=== PATIENT | male | born 1995 | race Caucasian/White ===

== ENCOUNTER 2016-09-13 19:14 | Emergency (ER) | payer SELFPAY ==
[2016-09-13] MEDS ORDERED: ONDANSETRON HCL INJ/PF 4 MG/2 ML SDV IV ONE ×2 (20:23→21:57)
[2016-09-13] MEDS ORDERED: NORMAL SALINE 1000 ML 1,000 ML IV ONE ×2 (20:23→21:57)
--- NOTE | 2016-09-13 20:28 | ER Document Report ---
ED Medical Screen (RME) - General Chief Complaint: Nausea/Vomiting Stated Complaint: FEVER,VOMITING,DIZZY Time Seen by Provider: 09/13/16 20:25 Mode of Arrival: Ambulatory Information source: Patient Notes: 20 yo male intermittent fever, nausea, vomiting, diarrhea, dry heaving, sharp tickle/cough with inhalation for 10 days. Tooth extracted top left, 2nd molar 14 days ago was on amoxicillin. Generalized bodyaches. No tick bite, no travel outside [place]. TRAVEL OUTSIDE OF THE [place] IN LAST 30 DAYS: No - Related Data Allergies/Adverse Reactions: No Known Allergies Allergy (Unverified 09/13/16 19:50) Past Medical History Renal/ Medical History: Denies: Hx Peritoneal Dialysis Physical Exam - Vital signs Vitals: Temp Pulse Resp BP Pulse Ox 99.8 F 113 H 18 117/66 97 09/13/16 19:50 09/13/16 19:50 09/13/16 19:50 09/13/16 19:50 09/13/16 19:50 Course - Vital Signs Vital signs: Temp Pulse Resp BP Pulse Ox 99.8 F 113 H 18 117/66 97 09/13/16 19:50 09/13/16 19:50 09/13/16 19:50 09/13/16 19:50 09/13/16 19:50
--- NOTE | 2016-09-13 21:01 | RADIOLOGY REPORT (SQ) ---
EXAM DESCRIPTION: CHEST PA/LAT COMPLETED DATE/TIME: 09/13/2016 8:49 pm REASON FOR STUDY: cough, fever COMPARISON: None. EXAM PARAMETERS: NUMBER OF VIEWS: two views TECHNIQUE: Digital Frontal and Lateral radiographic views of the chest acquired. RADIATION DOSE: NA LIMITATIONS: none FINDINGS: LUNGS AND PLEURA: There is patchy airspace density in the left lower lobe consistent with a patchy pneumonic infiltrate. The remaining lung nolasco are clear. No pleural effusions are identi fied. MEDIASTINUM AND HILAR STRUCTURES: No masses or contour abnormalities. HEART AND VASCULAR STRUCTURES: Heart normal size. No evidence for failure. BONES: No acute findings. HARDWARE: None in the chest. OTHER: No other significant finding. IMPRESSION: Patchy pneumonic infiltrate in the left lower lobe. TECHNICAL DOCUMENTATION: JOB ID: [id number] [employer]- All Rights Reserved
[2016-09-13 21:06] LABS: ABSOLUTE BASOPHILS # (AUTO) 0.1 10^3/uL (0.0-0.2); ABSOLUTE EOSINOPHILS # (AUTO) 0.1 10^3/uL (0.0-0.6); ABSOLUTE LYMPHOCYTES (AUTO) 1.2 10^3/uL (0.5-4.7); ABSOLUTE MONOCYTES (AUTO) 1.5 10^3/uL (0.1-1.4); BASOPHILS % (AUTO) 0.8 % (0-2); EOSINOPHILS % (AUTO) 0.8 % (0-6); HEMATOCRIT 43.5 % (37.9-51.0); HEMOGLOBIN 14.6 g/dL (13.5-17.0); HGB HCT DIFFERENCE 0.3; LYMPHOCYTES % (AUTO) 9.6 % (13-45); MEAN CORPUSCULAR HEMOGLOBIN 28.9 pg (27.0-33.4); MEAN CORPUSCULAR HGB CONC 33.5 g/dL (32.0-36.0); MEAN CORPUSCULAR VOLUME 86 fl (80-97); MONOCYTES % (AUTO) 11.5 % (3-13); RED BLOOD COUNT 5.05 10^6/uL (4.35-5.55); SEGMENTED NEUTROPHILS % (AUTO) 77.3 % (42-78); WHITE BLOOD COUNT 12.9 10^3/uL (4.0-10.5)
[2016-09-13 21:16] LABS: ALANINE AMINOTRANSFERASE 102 U/L (21-72); ALKALINE PHOSPHATASE 92 U/L (38-126); ANION GAP 14 (5-19); ASPARTATE AMINO TRANSFERASE 60 U/L (17-59); BILIRUBIN,DIRECT 0.5 mg/dL (0.0-0.4); BLOOD UREA NITROGEN 12 mg/dL (7-20); CARBON DIOXIDE 27 mmol/L (22-30); CHLORIDE 97 mmol/L (98-107); GLUCOSE 95 mg/dL (75-110); LIPASE 93.4 U/L (23-300); POTASSIUM 3.9 mmol/L (3.6-5.0); SODIUM 137.5 mmol/L (137-145); TOTAL PROTEIN 7.7 g/dL (6.3-8.2)
[2016-09-13 21:50] LABS: APPEARANCE,URINE CLEAR; BILIRUBIN,URINE NEGATIVE (NEGATIVE); GLUCOSE, URINE NEGATIVE (NEGATIVE); KETONES,URINE TRACE mg/dL (NEGATIVE); LEUKOCYTE ESTERASE,URINE NEGATIVE (NEGATIVE); NITRITE,URINE NEGATIVE (NEGATIVE); PROTEIN,URINE NEGATIVE (NEGATIVE); URINE SPECIFIC GRAVITY 1.009; UROBILINOGEN,URINE NEGATIVE mg/dL (<2.0)
[2016-09-13] MEDS ORDERED: NORMAL SALINE 1000 ML 1,000 ML IV PRN (21:57)
[2016-09-13] MEDS ORDERED: KETOROLAC TROMETHAMINE INJ/PF 30 MG/1 ML SDV IV ONE (21:57)
[2016-09-13] MEDS ORDERED: AZITHROMYCIN 250 MG TABLET PO ONE (21:58)
--- NOTE | 2016-09-13 22:49 | ER Document Report ---
ED General - General Chief Complaint: Nausea/Vomiting Stated Complaint: FEVER,VOMITING,DIZZY Time Seen by Provider: 09/13/16 20:30 Mode of Arrival: Ambulatory Information source: Patient Notes: 20-year-old male presents to ED for nausea vomiting diarrhea dry heaving cough with fever. Patient states she has been sick for 10 days. He had a tooth extracted 14 days ago and was on amoxicillin and has had generalized body aches since then. TRAVEL OUTSIDE OF THE [place] IN LAST 30 DAYS: No - HPI Onset: Last week Onset/Duration: Gradual Quality of pain: Achy Severity: Severe Pain Level: 5 Associated symptoms: Body/muscle aches, Nonproductive cough, Fever, Nausea, Vomiting, Weakness Exacerbated by: Denies Relieved by: Denies Similar symptoms previously: Yes Recently seen / treated by doctor: Yes - Related Data Allergies/Adverse Reactions: No Known Allergies Allergy (Unverified 09/13/16 19:50) Past Medical History - General Information source: Patient - Social History Smoking Status: Never Smoker Cigarette use (# per day): No Chew tobacco use (# tins/day): No Smoking Education Provided: No Frequency of alcohol use: None Drug Abuse: None Lives with: Family Family History: Reviewed & Not Pertinent Patient has suicidal ideation: No Patient has homicidal ideation: No - Past Medical History Cardiac Medical History: Reports: None Pulmonary Medical History: Reports: None EENT Medical History: Reports: None Neurological Medical History: Reports: None Endocrine Medical History: Reports: None Renal/ Medical History: Reports: None Physical Exam - Vital signs Vitals: Temp Pulse Resp BP Pulse Ox 99.8 F 113 H 18 117/66 97 09/13/16 19:50 09/13/16 19:50 09/13/16 19:50 09/13/16 19:50 09/13/16 19:50 Interpretation: Normal - General General appearance: Appears well, Alert - HEENT Head: Normocephalic, Atraumatic Eyes: Normal Pupils: PERRL Ears: Normal External canal: Normal Tympanic membrane: Normal Sinus: Normal Nasal: Purulent discharge, Swelling Mouth/Lips: Normal Mucous membranes: Normal Pharynx: Post nasal drainage Neck: Normal - Respiratory Respiratory status: No respiratory distress Chest status: Nontender Breath sounds: Nonproductive cough Chest palpation: Normal - Cardiovascular Rhythm: Regular Heart sounds: Normal auscultation Murmur: No - Abdominal Inspection: Normal Distension: No distension Bowel sounds: Normal Tenderness: Nontender Organomegaly: No organomegaly - Back Back: Normal, Nontender - Extremities General upper extremity: Normal inspection, Nontender, Normal color, Normal ROM , Normal temperature General lower extremity: Normal inspection, Nontender, Normal color, Normal ROM , Normal temperature, Normal weight bearing. No: Andreina's sign - Neurological Neuro grossly intact: Yes Cognition: Normal Orientation: AAOx4 [place] Coma Scale Eye Opening: Spontaneous [place] Coma Scale Verbal: Oriented [place] Coma Scale Motor: Obeys Commands [place] Coma Scale Total: 15 Speech: Normal Motor strength normal: LUE, RUE, LLE, RLE Sensory: Normal - Psychological Associated symptoms: Normal affect, Normal mood - Skin Skin Temperature: Warm Skin Moisture: Dry Skin Color: Normal Course - Re-evaluation Re-evalutation: 09/14/16 08:12 The patient written for Zithromax patient treated with azithromycin in the ED. Patient discharged home to follow-up with his primary doctor. - Vital Signs Vital signs: Temp Pulse Resp BP Pulse Ox 98.9 F 81 18 122/66 95 09/13/16 23:14 09/13/16 23:14 09/13/16 19:50 09/13/16 23:14 09/13/16 23:14 - Laboratory Result Diagrams: 09/13/16 20:38 09/13/16 20:38 Laboratory results interpreted by me: 09/13/16 09/13/16 09/13/16 20:38 20:38 21:33 WBC 12.9 H Lymphocytes % 9.6 L Absolute Neutrophils 10.0 H Absolute Monocytes 1.5 H Chloride 97 L Direct Bilirubin 0.5 H AST 60 H ALT 102 H Urine Ketones TRACE H - Diagnostic Test Radiology reviewed: Image reviewed, Reports reviewed Discharge - Discharge Clinical Impression: Pneumonia Qualifiers: Pneumonia type: due to unspecified organism Laterality: left Lung location: lower lobe of lung Qualified Code(s): J18.1 - Lobar pneumonia, unspecified organism Nausea & vomiting Qualifiers: Vomiting type: unspecified Vomiting Intractability: non-intractable Qualified Code(s): R11.2 - Nausea with vomiting, unspecified Disposition: HOME, SELF-CARE Instructions: Family Physicians / Practices Additional Instructions: VOMITING: Vomiting (or nausea without vomiting) can be caused by many other different problems. It can mean that something's wrong with the stomach, such as ulcers or inflammation or the intestinal tract, such as appendicitis. But it can also be a symptom of a problem that has nothing to do with the stomach or intestines. Vomiting is common with severe headaches, earaches, tonsillitis, and kidney infections, etc. We see it with pneumonia or heart attacks. Drugs can cause nausea and vomiting. Many abdominal problems cause vomiting; for example, gallstones, kidney stones, pancreatitis, and intestinal obstruction ( blocked bowels). In most cases, curing the vomiting depends on fixing the problem that caused it. For temporary relief, we may use an anti-nausea medicine. For home use, we can prescribe suppositories, chewable pills, pills that dissolve in the mouth, or liquid anti-nausea drugs. If the vomiting seems to be caused by a problem in the stomach, acid-suppressing drugs may be prescribed as well. It's important to avoid dehydration. Sip small amounts of clear liquids ( soft drinks, tea, broth, etc) . Try to take fluids frequently even if you are vomiting to prevent dehydration. Take increasing amounts of fluid and when liquids are being consumed successfully, advance to small amounts of bland food (toast, soups, mashed potatoes, etc.) until you are able to resume a regular diet. Avoid aspirin, tobacco, and alcohol. If the vomiting worsens, if the problem that's making you vomit worsens, or if there's evidence of bleeding in the stomach (such as black, tarry stool, or bloody or black vomit), you should return immediately. Also, return if abdominal pain worsens or becomes localized to one area or you develop high fever. Call your doctor if you aren't improved in 24 hours. PNEUMONIA: Your examination indicates that you have pneumonia. This is an infection of the lung tissue, usually caused by bacteria or a virus. Symptoms include cough, fever, shaking chills, chest pain, shortness of breath, and coughing up bloody sputum. Treatment for bacterial pneumonia includes rest, antibiotics for 10 to 14 days, increasing your clear liquid intake, a cool mist humidifier at your bedside, and fever medication. Often, a repeat chest X-ray is performed in a few weeks--even if you feel better--to ascertain whether the infection has completely resolved and no underlying lung problem is present. You should call the physician if you develop persistent vomiting, high fever that does not respond to fever medication, increasing shortness of breath , confusion, or lethargy. Also, failure to improve within two to three days is an indication for re-examination. INTRAVENOUS (I V) FLUIDS: As part of your care today, you received intravenous (IV) fluids. IV fluids are administered to patients who are dehydrated or to those who have certain chemical (electrolyte) abnormalities that need correcting. ANTINAUSEA MEDICATION: You have been given a medication to suppress nausea and vomiting. This type of medication can be given as a shot, pill, or suppository. It will usually last for many hours. Pills and shots usually last six to eight hours. For the typical illness, only one or two doses of the medication may be necessary. Mild lightheadedness may occur. This type of medicine can cause drowsiness. Do not drive or operate dangerous machinery while under its influence. Do not mix with alcohol. See your doctor at once if you have muscle spasms or tightness, or uncontrollable motions (particularly of the neck, mouth, or jaw). Persistent vomiting or severe lightheadedness should also be evaluated by the physician. AZITHROMYCIN: Azithromycin (Zithromax) is a broad spectrum antibiotic in the same class as erythromycin. It can treat a variety of bacterial infections, but is most frequently used for respiratory infections. Azithromycin is extremely long-lasting. It accumulates in body tissues and continues to kill bacteria for many days. In order to improve absorption, Azithromycin should be taken at least one hour before or two hours after a meal. It does not have the same strong tendency to upset the stomach as erythromycin and is usually very well tolerated. Patients who have had a rash or other true allergic reactions to erythromycin should not take this medication. Call if you develop gastrointestinal distress, severe diarrhea, rash, hives, itching, or shortness of breath. DOXYCYCLINE: Doxycycline (Vibramycin, Doryx) is an antibiotic of the tetracycline family. This type of drug is useful for infections of the respiratory tract and genital tract, and is sometimes used for intestinal infections. Unlike most tetracyclines, doxycycline can be taken with food. It is longer acting, and (usually) less prone to side effects than regular tetracycline. Tetracycline antibiotics can stain immature teeth and SHOULD NOT BE TAKEN BY CHILDREN, NURSING MOTHERS, OR WOMEN. Tetracyclines can make you more prone to sunburn. Abdominal cramping, nausea, and diarrhea are occasional side effects. Women may experience vaginal yeast infections. Call the doctor at once if you develop hives, itching, shortness of breath , or lightheadedness. Toradol Injection You have been given an injection of ketorolac tromethamine (Toradol). This is an excellent, safe drug for pain control. It also has potent antiinflammatory action. You should have significant pain relief within about one hour. Toradol is not addicting and is non-sedating. It does not interfere with driving or work. Call or return if you develop itching, hives, shortness of breath, or rash. FOLLOW-UP CARE: If you have been referred to a physician for follow-up care, call the physician s office for an appointment as you were instructed or within the next two days. If you experience worsening or a significant change in your symptoms, notify the physician immediately or return to the Emergency Department at any time for re-evaluation. Prescriptions: Promethazine HCl [Phenergan 25 mg Tablet] 25 mg PO Q6HP PRN #14 tablet PRN Reason: Azithromycin [Zithromax 250 mg Tablet] 1,000 mg PO ASDIR PRN #4 tablet PRN Reason: Forms: Return to Work
[2016-09-13 23:16] VITALS: BP 122/66
== END 2016-09-13 23:16 | disposition home or self-care (01) ==
LOC: ER 19:14
DX: R11.2 Nausea with vomiting, unspecified (principal); J18.1 Lobar pneumonia, unspecified organism; R05 Cough; R50.9 Fever, unspecified; M79.1 Myalgia; J34.89 Other specified disorders of nose and nasal sinuses; Z98.890 Other specified postprocedural states
CPT/HCPCS: 96376; 99284; 96361; 96374; 96375; 36415; 87040; 83690; 85025; 86308; 80053; 81001; 71020; J1885; J2405; J7030

== ENCOUNTER 2018-01-09 10:29 | Emergency (ER) | payer SELFPAY ==
[2018-01-09] MEDS ORDERED: CEFAZOLIN 2 GM/D5W RTU 2 GM/50 ML RTUPB IV ONE (11:02)
--- NOTE | 2018-01-09 11:04 | ER Document Report ---
ED Medical Screen (RME) - General Chief Complaint: Hand Swelling Stated Complaint: SWOLLEN HAND Time Seen by Provider: 01/09/18 10:55 Notes: Patient is a 22-year-old male that presents to the emergency department for chief complaint of right hand swelling and pain. Patient states he hit his hand on a screw, on , and then accidentally had the same hand have a door closed on its on Monday, over the weekend his hand was more swollen and painful so he decided come to the emergency department.. ROS: Other than noted above, the 12 point review of systems was reviewed with the patient and were negative, all pertinent findings are included in the HPI. PHYSICAL EXAMINATION: Vital signs reviewed. GENERAL: Well-appearing, well-nourished and in no acute distress. HEAD: Atraumatic, normocephalic. EYES: Pupils equal round extraocular movements intact, conjunctiva are normal. ENT: Nares patent NECK: Normal range of motion CV: Heart regular rate and rhythm LUNGS: No respiratory distress Musculoskeletal: Right hand is swollen and erythematous over the dorsal aspect, tender to palpate, there is no swelling or erythema over the palmar aspect of the right hand, no pain with passive extension of all digits. Rest of his extremity exam is unremarkable. NEUROLOGICAL: Normal speech PSYCH: Normal mood, normal affect. MDM: Patient declined x-rays, although they were advised, he said he did not have insurance, and felt there too expensive, he claimed that he did not hit his hand hard enough to break it. Patient seen and examined for rapid initial assessment. Vital signs reviewed. A comprehensive ED assessment and evaluation of the patient, analysis of test results and completion of the medical decision making process will be conducted by additional ED providers. *Note is created using voice recognition software and may contain spelling, syntax or grammatical errors. TRAVEL OUTSIDE OF THE [place] IN LAST 30 DAYS: No - Related Data Allergies/Adverse Reactions: No Known Allergies Allergy (Verified 01/09/18 10:37) Past Medical History - Social History Frequency of alcohol use: None Drug Abuse: None Renal/ Medical History: Denies: Hx Peritoneal Dialysis Physical Exam - Vital signs Vitals: Temp Pulse Resp BP Pulse Ox 98.5 F 78 18 156/67 H 98 01/09/18 10:45 01/09/18 10:45 01/09/18 10:45 01/09/18 10:45 01/09/18 10:45 Course - Vital Signs Vital signs: Temp Pulse Resp BP Pulse Ox 98.5 F 78 18 156/67 H 98 01/09/18 10:45 01/09/18 10:45 01/09/18 10:45 01/09/18 10:45 01/09/18 10:45
[2018-01-09 11:43] LABS: ABSOLUTE BASOPHILS # (AUTO) 0.1 10^3/uL (0.0-0.2); ABSOLUTE EOSINOPHILS # (AUTO) 0.2 10^3/uL (0.0-0.6); ABSOLUTE LYMPHOCYTES (AUTO) 1.8 10^3/uL (0.5-4.7); ABSOLUTE MONOCYTES (AUTO) 1.4 10^3/uL (0.1-1.4); ABSOLUTE NEUT (AUTO) 7.6 10^3/uL (1.7-8.2); BASOPHILS % (AUTO) 1.1 % (0-2); EOSINOPHILS % (AUTO) 1.9 % (0-6); HEMATOCRIT 41.7 % (37.9-51.0); HEMOGLOBIN 14.4 g/dL (13.5-17.0); MEAN CORPUSCULAR HEMOGLOBIN 30.9 pg (27.0-33.4); MEAN CORPUSCULAR HGB CONC 34.5 g/dL (32.0-36.0); MEAN CORPUSCULAR VOLUME 90 fl (80-97); MONOCYTES % (AUTO) 12.3 % (3-13); PLATELET COUNT 168 10^3/uL (150-450); RED BLOOD COUNT 4.65 10^6/uL (4.35-5.55); SEGMENTED NEUTROPHILS % (AUTO) 68.7 % (42-78); TOTAL CELLS COUNTED % (AUTO) 100 %
[2018-01-09 11:59] LABS: ANION GAP 14 (5-19); BLOOD UREA NITROGEN 12 mg/dL (7-20); CALCIUM 8.9 mg/dL (8.4-10.2); CARBON DIOXIDE 35 mmol/L (22-30); CHLORIDE 92 mmol/L (98-107); GLUCOSE 105 mg/dL (75-110); POTASSIUM 3.6 mmol/L (3.6-5.0); SODIUM 141.1 mmol/L (137-145)
--- NOTE | 2018-01-09 12:06 | ER Document Report ---
ED General - General Chief Complaint: Hand Swelling Stated Complaint: SWOLLEN HAND Time Seen by Provider: 01/09/18 10:55 Notes: Patient is a 22-year-old male that presents to the emergency department for chief complaint of right hand swelling and pain. Patient states that he hit his dorsal aspect of his right hand on a screw, that had adhesive on it, this is this past , and then he had some mild swelling afterwards, but then he hit his door on his hand by accident on Monday. He states that it was not a severe injury when he slammed the door in his hand, but it did seem to worsen the swelling over the course the weekend, he got to the point where it was hard to make a fist because his hand was so swollen so he decided come to the emergency department. Most of the redness has been on the dorsal aspect of his right hand. The patient is right-handed. He has had some redness extending up to the wrist. Denies any streaking up past the wrist. Denies having any fevers , chills, night sweats. Denies any other injuries. Past Medical History: Denies chronic medical conditions Past Surgical History: Laminectomy Social History: Admits to smoking cigarettes daily, denies alcohol or drug use. Family History: Reviewed and noncontributory for presenting illness Allergies: Reviewed, see documented allergy list. REVIEW OF SYSTEMS: Other than noted above, the 12 point review of systems was reviewed with the patient and were negative, all pertinent findings are included in the HPI. PHYSICAL EXAMINATION: Vital signs reviewed, nursing noted reviewed. GENERAL: Well-appearing, well-nourished and in no acute distress. HEAD: Atraumatic, normocephalic. EYES: Eyes appear normal, extraocular movements intact, sclera anicteric, conjunctiva are normal. ENT: nares patent, oropharynx clear without exudates. Moist mucous membranes. NECK: Normal range of motion, supple without lymphadenopathy LUNGS: Breath sounds clear to auscultation bilaterally and equal. No wheezes rales or rhonchi. HEART: Regular rate and rhythm without murmurs ABDOMEN: Soft, nontender, normoactive bowel sounds. No rebound, guarding, or rigidity. No masses appreciated. EXTREMITIES: Right hand is swollen and erythematous over the dorsal aspect, tender to palpate, there is no swelling or erythema over the palmar aspect of the right hand, no pain with passive extension of all digits. There is no lymphangitis, and no axillary lymphadenopathy palpated. The rest the patient's extremity exam is grossly unremarkable. NEUROLOGICAL: No focal neurological deficits. Moves all extremities spontaneously Motor and sensory grossly intact on exam. PSYCH: Normal mood, normal affect. SKIN: Warm, Dry, normal turgor, no rashes or lesions noted on exposed skin TRAVEL OUTSIDE OF THE [place] IN LAST 30 DAYS: No - Related Data Allergies/Adverse Reactions: No Known Allergies Allergy (Verified 01/09/18 10:37) Past Medical History - Social History Smoking Status: Current Every Day Smoker Frequency of alcohol use: None Drug Abuse: None Family History: Reviewed & Not Pertinent Patient has suicidal ideation: No Patient has homicidal ideation: No Renal/ Medical History: Denies: Hx Peritoneal Dialysis Physical Exam - Vital signs Vitals: Temp Pulse Resp BP Pulse Ox 98.5 F 78 18 156/67 H 98 01/09/18 10:45 01/09/18 10:45 01/09/18 10:45 01/09/18 10:45 01/09/18 10:45 Course - Re-evaluation Re-evalutation: Patient seen and examined vital signs reviewed. Laboratory data and imaging were ordered as appropriate for the patient's presenting symptoms and complaint, with consideration of any critical or life threatening conditions that may be associated with their obtained history and exam as noted above. Patient was treated with IV Ancef 2 g, and ice therapy Results were reviewed when available and demonstrated mild leukocytosis of 11, 000, otherwise unremarkable X-rays of the hand were going to be ordered however the patient declined at this time stating that he could not afford the x-rays, because he did not have insurance, I still encouraged to have x-rays performed, but he insisted that he did not want them at this time. The patient was re-evaluated and was mildly improved, swelling down somewhat with ice therapy Evaluation was most consistent with cellulitis of the right hand, patient was given strict return guidelines particularly for extension of the erythema, worsening pain, or extension to the palmar surface of his hand, he was given prescriptions for Bactrim and Keflex for 7 days and advised to return if he had any worsening of his symptoms, patient was agreeable and understood this plan of care. Results were discussed with the patient at this point, after careful consideration I feel that that patient can be discharged from the emergency department, the patient was educated treatments and reasons to return to the emergency department based on their presumed diagnosis as noted above, they were advised to followup with a primary care physician in 2-3 days. Patient was agreeable to plan of care. *Note is created using voice recognition software and may contain spelling, syntax or grammatical errors. Laboratory 01/09/18 01/09/18 11:27 11:27 WBC 11.0 H RBC 4.65 Hgb 14.4 Hct 41.7 MCV 90 MCH 30.9 MCHC 34.5 RDW 13.0 Plt Count 168 Seg Neutrophils % 68.7 Lymphocytes % 16.0 Monocytes % 12.3 Eosinophils % 1.9 Basophils % 1.1 Absolute Neutrophils 7.6 Absolute Lymphocytes 1.8 Absolute Monocytes 1.4 Absolute Eosinophils 0.2 Absolute Basophils 0.1 Sodium 141.1 Potassium 3.6 Chloride 92 L Carbon Dioxide 35 H Anion Gap 14 BUN 12 Creatinine 0.80 Est GFR ( Amer) > 60 Est GFR (Non-Af Amer) > 60 Glucose 105 Calcium 8.9 - Vital Signs Vital signs: Temp Pulse Resp BP Pulse Ox 98.5 F 79 18 153/77 H 98 01/09/18 10:45 01/09/18 12:20 01/09/18 10:45 01/09/18 12:20 01/09/18 12:20 - Laboratory Result Diagrams: 01/09/18 11:27 01/09/18 11:27 Laboratory results interpreted by me: 01/09/18 01/09/18 11:27 11:27 WBC 11.0 H Chloride 92 L Carbon Dioxide 35 H Discharge - Discharge Clinical Impression: Cellulitis of hand, Leukocytosis Condition: Stable Disposition: HOME, SELF-CARE Instructions: Cellulitis ([facility]) Additional Instructions: Please keep your arm elevated as much as possible, to minimize the swelling, take the antibiotics as prescribed, however if your symptoms worsen, and there is increased redness or swelling, or extension into your palm or fingers, please return to the emergency department, as you may need additional IV antibiotics and admission to the hospital. Prescriptions: Cephalexin Monohydrate [Keflex 500 mg Capsule] 500 mg PO Q6H 7 Days #28 capsule Sulfamethoxazole/Trimethoprim [Bactrim Ds Tablet] 1 each PO BID #14 tablet Referrals: PHANI SHARMA MD [ACTIVE STAFF] - Follow up in 3-5 days (primary care, call for appointment. )
[2018-01-09 12:21] VITALS: BP 153/77
== END 2018-01-09 12:21 | disposition home or self-care (01) ==
LOC: ER 10:29
DX: L03.119 Cellulitis of unspecified part of limb (principal); M79.641 Pain in right hand; M79.89 Other specified soft tissue disorders; D72.829 Elevated white blood cell count, unspecified; F17.210 Nicotine dependence, cigarettes, uncomplicated
CPT/HCPCS: 99283; 96365; 36415; 85025; 80048; J0690

== ENCOUNTER 2018-01-23 09:03 | Emergency (ER) | payer SELFPAY ==
[2018-01-23 09:08] VITALS: BP 135/74
--- NOTE | 2018-01-23 09:44 | ER Document Report ---
ED General - General Chief Complaint: Hand Pain Stated Complaint: HAND PAIN Time Seen by Provider: 01/23/18 09:43 Notes: Patient is a 22 year old male that presents to the emergency department for chief complaint of right hand pain. Patient was seen about 2 weeks ago for an injury and infection to his right hand, was discharged from the ED on doxycycline. His infection had cleared and the swelling went down, but he had been using an yasir wrap and even used an MARYELLEN material on his hand for 2 days which was just removed. 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 He denies any further injuries or swelling. Otherwise he has been doing well and has improved. He does report that he was fired from his job because he had to miss work due to his infection and swelling of his right hand. Past Medical History: denies chronic medical conditions Past Surgical History: laminectomy Social History: Admits to smoking daily, denies alcohol or drug use. Family History: Reviewed and noncontributory for presenting illness Allergies: Reviewed, see documented allergy list. REVIEW OF SYSTEMS: Other than noted above, the 12 point review of systems was reviewed with the patient and were negative, all pertinent findings are included in the HPI. PHYSICAL EXAMINATION: Vital signs reviewed, nursing noted reviewed. GENERAL: Well-appearing, well-nourished and in no acute distress. HEAD: Atraumatic, normocephalic. EYES: Eyes appear normal, extraocular movements intact, sclera anicteric, conjunctiva are normal. ENT: Moist mucous membranes. NECK: Normal range of motion, supple without lymphadenopathy LUNGS: Breath sounds clear to auscultation bilaterally and equal. No wheezes rales or rhonchi. HEART: Regular rate and rhythm without murmurs EXTREMITIES: There is mild tenderness to palpation over the dorsal aspect of the right hand, no erythema, or evidence of infection. Extensor tendon and flexor tending function intact for all digits and with wrist flexion and extension. Strength intact. Otherwise the rest of the patients extremity exam was unremakable. NEUROLOGICAL: No focal neurological deficits. Moves all extremities spontaneously Motor and sensory grossly intact on exam. PSYCH: Normal mood, normal affect. SKIN: Warm, Dry, normal turgor, no rashes or lesions noted on exposed skin TRAVEL OUTSIDE OF THE [place] IN LAST 30 DAYS: No - Related Data Allergies/Adverse Reactions: No Known Allergies Allergy (Verified 01/09/18 10:37) Past Medical History - Social History Smoking Status: Current Every Day Smoker Family History: Reviewed & Not Pertinent Renal/ Medical History: Denies: Hx Peritoneal Dialysis Physical Exam - Vital signs Vitals: Temp Pulse Resp BP Pulse Ox 98.0 F 93 14 135/74 H 100 01/23/18 09:07 01/23/18 09:07 01/23/18 09:07 01/23/18 09:07 01/23/18 09:07 Course - Re-evaluation Re-evalutation: Patient seen and examined. Vitals reviewed. From prior exam, that patient was markedly improved, no signs of infection. Strength was intact, cap refill normal. Overall I feel that the patient does have some mild muscle atrophy due to almost 2 weeks of immobilization resulting in his symptoms. There is no deformity or concern for traumatic injury on exam and therefore xrays are not warranted. I advised signal wirer exercises and NSAIDS for pain relief. I also encourage the patient to file a worker's compensation claim since his initial injury did occur at work, and subsequently had an infection that required treatment. Patient stated that he would look into it. He was discharged in stable condition. - Vital Signs Vital signs: Temp Pulse Resp BP Pulse Ox 98.0 F 93 14 135/74 H 100 01/23/18 09:07 01/23/18 09:07 01/23/18 09:07 01/23/18 09:07 01/23/18 09:07 Discharge - Discharge Clinical Impression: Hand pain Qualifiers: Laterality: right Qualified Code(s): M79.641 - Pain in right hand Condition: Stable Disposition: HOME, SELF-CARE Instructions: Sprain ([facility]) Additional Instructions: Please follow-up with your primary care physician in 2-3 days, I would encourage you to consider filing a workers comp claim, because this initial injury did come from an infection that resulted from an injury at work. Referrals: OWEN COATES MD [ACTIVE STAFF] - Follow up in 3-5 days
== END 2018-01-23 10:02 | disposition home or self-care (01) ==
LOC: ER 09:03
DX: M79.641 Pain in right hand (principal); F17.200 Nicotine dependence, unspecified, uncomplicated
CPT/HCPCS: 99283